=== PATIENT | male | born 1975 | race Two or more races ===

== ENCOUNTER 2020-09-23 08:00 | Outpatient (CLI) | payer OTHER ==
--- NOTE | 2020-09-23 13:51 | XRAY Report ---
PROCEDURE: Cervical Spine 2 View INDICATIONS: NECK PAIN TECHNIQUE: 3 view(s) of the cervical spine were acquired. COMPARISON: None. FINDINGS: Bones: No fractures or dislocations to the C7-T1 level. Straightening of normal cervical lordosis i s seen. Mild degenerative endplate changes are noted at C5-6 and C6-7 levels. The lateral masses of C 1 appear intact on the odontoid view. No suspicious bony lesions. Soft tissues: No prevertebral soft tissue swelling. Well-corticated soft tissue calcification in pos terior lower neck at C5-6 level is seen most likely represent remote injury. IMPRESSION: Mild degenerative disc disease in lower cervical spine. No acute fracture or dislocation . Reviewed by: Bryan Allison MD on 09/23/2020 1:50 PM PST Approved by: Bryan Allison MD on 09/23/2020 1:50 PM PST Station ID: [id number]
== END 2020-09-23 23:59 | disposition home or self-care (01) ==
LOC: DI.S 08:00
PROVIDERS: ATTEND Physician Assistant
DX: S16.1XXA Strain of muscle, fascia and tendon at neck level, initial encounter (principal); M50.322 Other cervical disc degeneration at C5-C6 level

== ENCOUNTER 2021-08-30 23:00 | Outpatient (CLI) | payer SELFPAY | END 2021-08-30 23:01 | disposition critical access hospital (66) | LOC: EMS 23:00 | DX: M54.50 Low back pain, unspecified (principal); M79.605 Pain in left leg; M79.604 Pain in right leg; R11.2 Nausea with vomiting, unspecified | CPT/HCPCS: A0425; A0427 ==

== ENCOUNTER 2021-08-30 23:22 | Emergency (ER) | payer SELFPAY ==
[2021-08-31 00:59] LABS: BILIRUBIN,URINE NEGATIVE (NEGATIVE); GLUCOSE, URINE (UA) NEGATIVE (NEGATIVE); KETONES,URINE (UA) NEGATIVE (NEGATIVE); LEUKOCYTE ESTERASE, URINE NEGATIVE (NEGATIVE); NITRITE,URINE NEGATIVE (NEGATIVE); OCCULT BLOOD,URINE LARGE (NEGATIVE); PROTEIN,URINE NEGATIVE (NEGATIVE); UROBILINOGEN,URINE 2 E.U./dL (NORMAL)
--- NOTE | 2021-08-31 01:00 | ED Physician Documentation ---
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) Timing - details: Abrupt onset Pain level max: 10 Pain level now: 8 Location: Mid, Lower, Left, Other (radiates to left flank) Quality: Pain Associated symptoms: No: Fever Improves with: Nothing Worsened by: Other (no exacerbating factors) Similar symptoms before: Has not had sx before Recently seen: Clinic (evaluated earlier today in a clinic for chronic neck pain (received injections for this today); the back pain he is having at this time is new for him and unrelated to the neck pain) Review of Systems Constitutional: denies: Fever Cardiac: reports: Reviewed and negative Respiratory: reports: Reviewed and negative GI: reports: Nausea, Vomiting. denies: Abdominal Pain (left flank and back pain but not abdominal pain per se) : denies: Dysuria, Frequency Musculoskeletal: reports: Back pain PD PAST MEDICAL HISTORY - Past Medical History Past Medical History: Yes Other Past Medical History: chronic neck pain - Past Surgical History Past Surgical History: No - Present Medications Home Medications: Ambulatory Orders Medication Instructions Recorded Confirmed Acetaminophen [Acetaminophen Extra 500 mg pe PO PRN PRN 08/31/21 08/31/21 Strength] Etodolac 200 mg PO PRN PRN 08/31/21 08/31/21 Gabapentin [Neurontin] 300 mg PO DAILY 08/31/21 08/31/21 Ondansetron Odt [Zofran] 4 mg TL Q6H PRN #10 tablet 08/31/21 Oxycodone HCl/Acetaminophen 1 - 2 each PO Q6H PRN #14 tablet 08/31/21 [Percocet 5-325 mg Tablet] Tamsulosin [Flomax] 0.4 mg PO DAILY #7 cap 08/31/21 tiZANidine [Zanaflex] 4 mg PO PRN PRN 08/31/21 08/31/21 - Social History Does the pt smoke?: Yes Smoking Status: Current every day smoker PD ED PE NORMAL - Vitals Vital signs reviewed: Yes - General General: Alert and oriented X 3, Well developed/nourished, Other (obvious severe painful distress) - Cardiac Cardiac: RRR, No murmur - Respiratory Respiratory: No respiratory distress, Clear bilaterally - Abdomen Abdomen: Soft, Non tender, Non distended - Back Back: No CVA TTP, No spinal TTP - Derm Derm: Normal color, Warm and dry Results - Vitals Vitals: Oxygen O2 Source Room air - Labs Labs: Laboratory Tests 08/31/21 08/31/21 08/31/21 00:19 02:00 02:00 WBC 14.2 H RBC 4.81 Hgb 15.2 Hct 45.0 MCV 93.6 MCH 31.6 H MCHC 33.8 RDW 13.1 Plt Count 261 MPV 9.4 Neut # (Auto) 12.5 H Lymph # (Auto) 1.0 L [place] # (Auto) 0.7 Eos # (Auto) 0.0 Baso # (Auto) 0.0 Absolute Nucleated RBC 0.00 Nucleated RBC % 0.0 Sodium 139 Potassium 3.9 Chloride 101 Carbon Dioxide 26 Anion Gap 12.0 BUN 22 H Creatinine 1.0 Estimated GFR (MDRD) 80 L Glucose 118 H Calcium 8.8 Total Bilirubin 0.7 AST 19 ALT 35 Alkaline Phosphatase 59 Total Protein 7.3 Albumin 4.0 Globulin 3.3 Albumin/Globulin Ratio 1.2 Lipase 22 Urine Color YELLOW Urine Clarity SL. CLOUDY Urine pH 7.0 Ur Specific [place] 1.020 Urine Protein NEGATIVE Urine Glucose (UA) NEGATIVE Urine Ketones NEGATIVE Urine Occult Blood LARGE H Urine Nitrite NEGATIVE Urine Bilirubin NEGATIVE Urine Urobilinogen 2 H Ur Leukocyte Esterase NEGATIVE Urine RBC 11-25 H Urine WBC 0-3 Ur Squamous Epith Cells RARE Squamous Urine Bacteria Few Ur Microscopic Review INDICATED Urine Culture Comments NOT INDICATED - Rads (name of study) CT A/P Radiology: Prelim report reviewed, See rad report PD MEDICAL DECISION MAKING - ED course Complexity details: reviewed results, re-evaluated patient, considered differential, d/w patient ED course: presents with left flank and back pain, new onset (has not had this pain before). Pain started approximately 3-[address] demonstrates left distal ureteral calculus. He is given IV toradol and dilaudid with excellent symptom re lief. Results d/w patient. He is given tamsulosin in ED prior to d/c. prescriptions for oxycodone/acetaminophen, zofran, and tamsulosin electronically submitted to his pharmacy. Return precautions discussed and diagnosis, prognosis, and follow up were also discussed. I am prescribing a short course of short-acting opioid pain medication for this patient. I have reviewed the patients [place] and no concerning findings were noted. I have discussed that the opioids are for short term therapy only, and will not be refilled from the ED. Departure - Departure Disposition: 01 Home, Self Care Clinical Impression: Renal colic Condition: Good Instructions: ED Stone Renal W Colic Prescriptions: Tamsulosin [Flomax] 0.4 mg PO DAILY #7 cap Oxycodone HCl/Acetaminophen [Percocet 5-325 mg Tablet] 1 - 2 each PO Q6H PRN #14 tablet PRN Reason: pain Ondansetron Odt [Zofran] 4 mg TL Q6H PRN #10 tablet PRN Reason: Nausea / Vomiting Comments: Prescriptions for percocet (opioid pain medication), zofran (anti-nausea medication), and flomax (helps to pass the kidney stone) have been electronically submitted to [facility] pharmacy in [place]. I notice that you already have a prescription for acetaminophen. Do not take the acetaminophen within 6 hours of taking percocet, as there is acetaminophen in percocet (and too much acetaminophen can be toxic to your liver). I am prescribing a short course of narcotic pain medication for you. These are potentially dangerous and addictive medications that should be used carefully. These medications may constipate you. Take an byap-ycc-ybvkaqg stool softener (docusate) twice daily with plenty of water while taking these medications. If you go 24 hours without a bowel movement, take itak-shg-apupvar miralax, per package instructions. Do not drink or drive while taking these medications. If you received narcotic or sedating medications while in the emergency department, do not drive for 24 hours. Store this medication in a safe, secure place and out of reach of children. It is a violation of federal law to give or sell this medication to another person or to use in a manner other than prescribed. The ED will not refill narcotic prescriptions, including prescriptions lost or stolen. To dispose of unwanted medications: 1. [facility] at [address] in [place] has a medication drop box. They accept prescription medications (in pill form) Monday through Monday 9:00 a.m. to 5:00 p.m. 2. The [facility] [employer] accepts prescription medications (in pill form only) for disposal year round. Call for more information. 3. Contact the [facility] for the next [facility] sponsored prescription drug collection event. , [phone], or [phone]; Discharge Date/Time: 08/31/21 03:44
[2021-08-31] MEDS ORDERED: HYDROmorphone 1 MG/ML CARPUJECT IVP STA ×2 (01:07→01:50)
[2021-08-31 01:08] LABS: CLARITY,URINE SL. CLOUDY (CLEAR)
[2021-08-31 01:09] LABS: BACTERIA,URINE Few /HPF (None Seen); SQUAMOUS EPITHELIAL CELL,UR RARE Squamous (<= Few); WBC,URINE 0-3 /HPF (0-3)
[2021-08-31] MEDS ORDERED: ONDANSETRON 4 MG/2 ML VIAL IVP STA (01:12)
[2021-08-31] MEDS ORDERED: KETOROLAC 30 MG/ML VIAL IVP STA (01:43)
[2021-08-31] MEDS ORDERED: TAMSULOSIN 0.4 MG CAPSULE PO STA (01:43)
[2021-08-31 02:04] LABS: BASOPHILS % (AUTO) 0.3 %; EOSINOPHILS % (AUTO) 0.1 %; HGB - HEMOGLOBIN 15.2 g/dL (14.0-18.0); LYMPHOCYTES % (AUTO) 7.2 %; MEAN CORPUSCULAR HEMOGLOBIN 31.6 pg (27.0-31.0); MEAN CORPUSCULAR HGB CONC 33.8 g/dL (32.0-36.0); MEAN CORPUSCULAR VOLUME 93.6 fL (80.0-94.0); MEAN PLATELET VOLUME 9.4 fL (7.4-11.4); MONOCYTES # (AUTO) 0.7 10^3/uL (0.0-1.0); MONOCYTES % (AUTO) 4.6 %; NEUTROPHILS # (AUTO) 12.5 10^3/uL (1.5-6.6); NEUTROPHILS % (AUTO) 87.5 %; PLT - PLATELET COUNT 261 10^3/uL (130-450); RED BLOOD COUNT 4.81 10^6/uL (4.70-6.10); RED CELL DISTRIBUTION WIDTH 13.1 % (12.0-15.0); WHITE BLOOD COUNT 14.2 x10^3/uL (4.8-10.8)
[2021-08-31 02:17] LABS: ALBUMIN/GLOBULIN RATIO 1.2 (1.0-2.2); BILIRUBIN,TOTAL 0.7 mg/dL (0.2-1.0); CALCIUM 8.8 mg/dL (8.5-10.3); POTASSIUM 3.9 mmol/L (3.5-5.0); TOTAL PROTEIN 7.3 g/dL (6.7-8.2)
[2021-08-31 03:15] VITALS: BP 106/72
--- NOTE | 2021-08-31 03:20 | CT Report ---
PROCEDURE: Abdomen/Pelvis WO INDICATIONS: left flank pain TECHNIQUE: Noncontrast 5 mm thick sections acquired from the diaphragms to the symphysis. 5 mm coronal and sagi ttal reformats were then performed. For radiation dose reduction, the following was used: automated exposure control, adjustment of mA and/or kV according to patient size. COMPARISON: None. FINDINGS: Image quality: Excellent. ABDOMEN: Lung bases: Lung bases are clear. Heart size is normal. There is a small hiatal hernia. Solid organs: Liver and spleen are normal in size. Gallbladder is normal. Pancreas is normal in co ntours. No adrenal nodules. There is mild left hydronephrosis. There is a 5 mm stone at the left UVJ. No other renal calculi. Kid neys are normal in size. Peritoneum and bowel: Unenhanced bowel loops demonstrate normal wall thickness and caliber. There a re colonic diverticula in sigmoid colon. No CT findings to suggest acute diverticulitis. No free flui d or air. Nodes and vessels: No retroperitoneal or mesenteric adenopathy by size criteria. Aorta and inferior vena cava are normal in caliber. Miscellaneous: No ventral hernias. PELVIS: Genitourinary: Bladder wall thickness is normal. Prostate is mildly enlarged. Miscellaneous: No inguinal hernias or adenopathy. Bones: No suspicious bony lesions. No vertebral body compression fractures. There is severe degener ative disc disease at L4-L5 causing moderate central canal stenosis. Mild degenerative disc disease i s present at other levels. IMPRESSION: 1. There is a 5 mm obstructive stone at the left UVJ. There is mild left hydronephrosis. 2. No other renal stones are identified. 3. Diverticulosis without diverticulitis. 4. Small hiatal hernia. 5. Severe degenerative disc disease at L4-L5 causing moderate central canal stenosis. Reviewed by: Dillon Novak MD on 08/31/2021 3:19 AM PST Approved by: Dillon Novak MD on 08/31/2021 3:19 AM PST Station ID: [id number]
[2021-08-31] MEDS ORDERED: ONDANSETRON ODT 4 MG Prepack 2 TL STA (03:21)
[2021-08-31] MEDS ORDERED: oxyCODONE/ACET 5/325 Prepack 4 PO STA (03:21)
== END 2021-08-31 03:44 | disposition home or self-care (01) ==
LOC: EDUNIT# → ED 23:22
DX: N13.2 Hydronephrosis with renal and ureteral calculous obstruction (principal); F17.200 Nicotine dependence, unspecified, uncomplicated
CPT/HCPCS: 36415; 74176; 80053; 81001; 83690; 85025; 96374; 96375; 96376; 99284; A9270; J1170; 81003; 87086

== ENCOUNTER 2021-09-04 00:29 | Emergency (ER) | payer SELFPAY ==
--- NOTE | 2021-09-04 00:44 | ED Physician Documentation ---
PD HPI ABD PAIN - Stated complaint Stated Complaint: L SIDE ABD PX - Chief complaint Chief Complaint: Abd Pain - History obtained from History obtained from: Patient - History of Present Illness Timing - onset: How many days ago (5) Timing - details: Abrupt onset, Intermittant, Waxing and waning Pain level now: 8 Quality: Pain Location: LLQ Radiation: Left flank Improved by: Meds (oxycodone) Worsened by: Other (no exacerbating factors) Associated symptoms: Nausea, Vomiting. No: Fever Similar symptoms before: Diagnosis (renal colic) Recently seen: Emergency Dept - Additional information Additional information: T+R from this ED 5 days ago for same symptoms (left flank pain), diagnosed with renal colic by CT which showed 5mm left UVJ stone. He has not pursued outpatient follow up. he says the prescribed oxycodone was controlling the pain but that he is now out of this medication and the pain has returned. Review of Systems Constitutional: denies: Fever GI: reports: Abdominal Pain, Nausea. denies: Vomiting : denies: Dysuria, Frequency PD PAST MEDICAL HISTORY - Past Medical History Past Medical History: Yes : Kidney stones - Past Surgical History Past Surgical History: No - Present Medications Home Medications: Ambulatory Orders Medication Instructions Recorded Confirmed Acetaminophen [Acetaminophen Extra 500 mg pe PO PRN PRN 08/31/21 08/31/21 Strength] Etodolac 200 mg PO PRN PRN 08/31/21 08/31/21 Gabapentin [Neurontin] 300 mg PO DAILY 08/31/21 08/31/21 Ondansetron Odt [Zofran] 4 mg TL Q6H PRN #10 tablet 08/31/21 Oxycodone HCl/Acetaminophen 1 - 2 each PO Q6H PRN #14 tablet 08/31/21 [Percocet 5-325 mg Tablet] Tamsulosin [Flomax] 0.4 mg PO DAILY #7 cap 08/31/21 tiZANidine [Zanaflex] 4 mg PO PRN PRN 08/31/21 08/31/21 Ondansetron Odt [Zofran] 4 mg TL Q6H PRN #14 tablet 09/04/21 Oxycodone HCl/Acetaminophen 1 - 2 each PO Q6H PRN #14 tablet 09/04/21 [Percocet 5-325 mg Tablet] oxyCODONE [Roxicodone] 5 - 10 mg PO Q6H PRN #14 tablet 09/04/21 - Allergies Allergies/Adverse Reactions: Allergies Allergy/AdvReac Type Severity Reaction Status Date / Time No Known Drug Allergies Allergy Verified 09/04/21 00:34 - Social History Does the pt smoke?: Yes Smoking Status: Current every day smoker PD ED PE NORMAL - Vitals Vital signs reviewed: Yes - General General: Alert and oriented X 3, Well developed/nourished, Other (appears to be in mild-moderate painful distress (appears to wax and wane during H+P)) - Cardiac Cardiac: RRR, No murmur - Respiratory Respiratory: No respiratory distress, Clear bilaterally - Abdomen Abdomen: Soft, Non tender - Back Back: No CVA TTP Results - Vitals Vitals: Vital Signs - 24 hr 09/04/21 09/04/21 09/04/21 00:34 00:40 01:05 Temperature 37.4 C 37.4 C Heart Rate 87 87 81 Respiratory 18 18 18 Rate Blood Pressure 130/82 H 130/82 H 109/70 O2 Saturation 99 99 97 09/04/21 02:00 Temperature Heart Rate 81 Respiratory 17 Rate Blood Pressure 156/61 H O2 Saturation 96 Oxygen O2 Source Room air - Labs Labs: Laboratory Tests 09/04/21 00:42 Urine Color YELLOW Urine Clarity CLEAR Urine pH 6.0 Ur Specific [place] 1.025 Urine Protein NEGATIVE Urine Glucose (UA) NEGATIVE Urine Ketones NEGATIVE Urine Occult Blood LARGE H Urine Nitrite NEGATIVE Urine Bilirubin NEGATIVE Urine Urobilinogen 0.2 (NORMAL) Ur Leukocyte Esterase NEGATIVE Urine RBC 11-25 H Urine WBC 0-3 Ur Squamous Epith Cells NONE SEEN Urine Bacteria None Seen Ur Microscopic Review INDICATED Urine Culture Comments NOT INDICATED PD MEDICAL DECISION MAKING - ED course Complexity details: reviewed old records, reviewed results, re-evaluated patient, considered differential, d/w patient ED course: Diagnosed with renal colic in this ED [address] demonstrating 5mm left distal ureteral calculus, returns due to ongoing pain that was controlled by oxycodone, but ran out of this medication. He has hematuria on tonight's UA; other emergent testing not indicated at this time. He is given 1mg IM dilaudid and on reevaluation he is resting comfortably and reports good pain relief. Rx for oxycodone sent to his pharmacy. I instructed him to pursue outpatient follow up; he will likely need to see a general practitioner to obtain urology referral. I am prescribing a short course of short-acting opioid pain medication for this patient. I have reviewed the patients [place] and no concerning findings were noted. I have discussed that the opioids are for short term therapy only, and will not be refilled from the ED. Departure - Departure Disposition: 01 Home, Self Care Clinical Impression: Renal colic Condition: Good Instructions: ED Stone Renal W Colic Prescriptions: Oxycodone HCl/Acetaminophen [Percocet 5-325 mg Tablet] 1 - 2 each PO Q6H PRN #14 tablet PRN Reason: pain oxyCODONE [Roxicodone] 5 - 10 mg PO Q6H PRN #14 tablet PRN Reason: Pain Ondansetron Odt [Zofran] 4 mg TL Q6H PRN #14 tablet PRN Reason: Nausea / Vomiting Comments: Prescriptions for oxycodone (pain medication) and ondansetron (anti-nausea medication) have been submitted to [facility] pharmacy in [place]. Please seek follow up with a urologist; to do this, you will likely need a referral from an outpatient general practitioner (such as family practice at a clinic). I am prescribing a short course of narcotic pain medication for you. These are potentially dangerous and addictive medications that should be used carefully. These medications may constipate you. Take an xqig-fjh-jkmfixz stool softener (docusate) twice daily with plenty of water while taking these medications. If you go 24 hours without a bowel movement, take lhxq-xrn-rzxgryt miralax, per package instructions. Do not drink or drive while taking these medications. If you received narcotic or sedating medications while in the emergency department, do not drive for 24 hours. Store this medication in a safe, secure place and out of reach of children. It is a violation of federal law to give or sell this medication to another person or to use in a manner other than prescribed. The ED will not refill narcotic prescriptions, including prescriptions lost or stolen. To dispose of unwanted medications: 1. [facility] [address] in [place] has a medication drop box. They accept prescription medications (in pill form) Monday through Monday 9:00 a.m. to 5:00 p.m. 2. The [facility] accepts prescription medications (in pill form only) for disposal year round. Call for more information. 3. Contact the [facility] for the next [facility] sponsored prescription drug collection event. , [phone], or [phone]; Discharge Date/Time: 09/04/21 02:44
[2021-09-04] MEDS ORDERED: HYDROmorphone 1 MG/ML CARPUJECT IM STA (00:55)
[2021-09-04] MEDS ORDERED: ONDANSETRON ODT 4 MG TABLET TL STA (00:55)
[2021-09-04 01:09] LABS: BILIRUBIN,URINE NEGATIVE (NEGATIVE); GLUCOSE, URINE (UA) NEGATIVE (NEGATIVE); KETONES,URINE (UA) NEGATIVE (NEGATIVE); LEUKOCYTE ESTERASE, URINE NEGATIVE (NEGATIVE); NITRITE,URINE NEGATIVE (NEGATIVE); OCCULT BLOOD,URINE LARGE (NEGATIVE); PROTEIN,URINE NEGATIVE (NEGATIVE); UROBILINOGEN,URINE 0.2 (NORMAL) E.U./dL (NORMAL)
[2021-09-04 01:13] LABS: CLARITY,URINE CLEAR (CLEAR)
[2021-09-04 01:17] LABS: BACTERIA,URINE None Seen /HPF (None Seen); SQUAMOUS EPITHELIAL CELL,UR NONE SEEN (<= Few); WBC,URINE 0-3 /HPF (0-3)
[2021-09-04 02:19] VITALS: BP 156/61
== END 2021-09-04 02:44 | disposition home or self-care (01) ==
LOC: ED 00:29
DX: N13.2 Hydronephrosis with renal and ureteral calculous obstruction (principal); R31.9 Hematuria, unspecified; F17.200 Nicotine dependence, unspecified, uncomplicated
CPT/HCPCS: 81001; 96372; 99283; J1170; Q0162; 81003; 87086

== ENCOUNTER 2022-06-15 12:52 | Emergency (ER) | payer SELFPAY ==
[2022-06-15 13:09] VITALS: BP 115/75
--- NOTE | 2022-06-15 13:40 | ED Physician Documentation ---
PD DWAINE HEENT - Stated complaint Stated Complaint: EAR PX - Chief complaint Chief Complaint: Heent - History obtained from History obtained from: Patient - History of Present Illness Timing - onset: How many days ago (5) Timing - duration: Days (5) Timing - details: Abrupt onset, Still present Location: Right ear, Left ear Improves: Medication Associated symptoms: Other (hearing loss). No: Fever, Congestion, Rhinorrhea, Trismus, Unable to swallow, Swollen nodes, Facial swelling, Headache, Cough Similar symptoms before: Has not had sx before Recently seen: Emergency Dept - Additional information Additional information: 47-year-old Dejon Colby was seen in the emergency department here 5 days ago for bilateral otitis externa. He was placed on ofloxacin drops and he has had some improvement in his symptoms but continues have itching and fullness. Review of Systems Constitutional: denies: Fever Eyes: denies: Decreased vision Ears: reports: Loss of hearing, Ear pain Nose: denies: Rhinorrhea / runny nose, Congestion Throat: denies: Sore throat Cardiac: denies: Chest pain / pressure Respiratory: denies: Dyspnea, Cough GI: denies: Vomiting PD PAST MEDICAL HISTORY - Past Medical History Cardiovascular: None Respiratory: None Neuro: None Endocrine/Autoimmune: None GI: None : Kidney stones HEENT: None Psych: None Musculoskeletal: None Derm: None - Past Surgical History Past Surgical History: No - Present Medications Home Medications: Ambulatory Orders Medication Instructions Recorded Confirmed Acetaminophen [Acetaminophen Extra 500 mg pe PO PRN PRN 08/31/21 08/31/21 Strength] Etodolac 200 mg PO PRN PRN 08/31/21 08/31/21 Gabapentin [Neurontin] 300 mg PO DAILY 08/31/21 08/31/21 Ondansetron Odt [Zofran] 4 mg TL Q6H PRN #10 tablet 08/31/21 Oxycodone HCl/Acetaminophen 1 - 2 each PO Q6H PRN #14 tablet 08/31/21 [Percocet 5-325 mg Tablet] Tamsulosin [Flomax] 0.4 mg PO DAILY #7 cap 08/31/21 tiZANidine [Zanaflex] 4 mg PO PRN PRN 08/31/21 08/31/21 Ondansetron Odt [Zofran] 4 mg TL Q6H PRN #14 tablet 09/04/21 Oxycodone HCl/Acetaminophen 1 - 2 each PO Q6H PRN #14 tablet 09/04/21 [Percocet 5-325 mg Tablet] oxyCODONE [Roxicodone] 5 - 10 mg PO Q6H PRN #14 tablet 09/04/21 Ofloxacin [Ofloxacin Otic drops] 10 ml EACHEAR DAILY 5 Days #50 ml 06/10/22 Neomycin/Polymyx/Hc Otic Drops 4 drops EACHEAR TID #10 ml 06/15/22 [Cortisporin Ear Susp] - Allergies Allergies/Adverse Reactions: Allergies Allergy/AdvReac Type Severity Reaction Status Date / Time No Known Drug Allergies Allergy Verified 06/15/22 13:09 - Social History Does the pt smoke?: Yes Smoking Status: Current every day smoker Does the pt drink ETOH?: No Does the pt have substance abuse?: No PD ED PE NORMAL - Vitals Vital signs reviewed: Yes (normal ) - General General: Alert and oriented X 3, No acute distress, Well developed/nourished - HEENT HEENT: Atraumatic, PERRL, EOMI, Other (both canals are edematous and erythematous with pain to the left only. 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, No motor deficit, No sensory deficit, Normal speech Eye Opening: Spontaneous Motor: Obeys Commands Verbal: Oriented GCS Score: 15 - Psych Psych: Normal mood, Normal affect Results - Vitals Vitals: Vital Signs - 24 hr 06/15/22 13:06 Temperature 36.5 C Heart Rate 73 Respiratory 16 Rate Blood Pressure 115/75 O2 Saturation 97 Oxygen O2 Source Room air PD MEDICAL DECISION MAKING - ED course Complexity details: considered differential, d/w patient ED course: 47-year-old male has bilateral otitis externa appears to have some improvement from his prior examination but continues to complain of itching and symptoms. We will switch him to Cortisporin otic and I will have him follow-up with ENT if he does not have resolution. Departure - Departure Disposition: 01 Home, Self Care Clinical Impression: Bilateral otitis externa Qualifiers: Otitis externa type: unspecified type Chronicity: acute Qualified Code(s): H60.503 - Unspecified acute noninfective otitis externa, bilateral Condition: Stable Instructions: ED Otitis Externa Follow-Up: [facility] [place] [Provider Group] Prescriptions: Neomycin/Polymyx/Hc Otic Drops [Cortisporin Ear Susp] 4 drops EACHEAR TID #10 ml Comments: Dejon, today it looks like you have a persistence of your external ear canal infection and it is causing you some symptoms of itching. We are changing your drops to a drop that will have some cortisone in it and this should help. My recommendation is that if you do not get relief of your symptoms over the weekend to follow-up with the ear nose and throat doctor in [place].The medication has been E scribed to [facility] in [place]
== END 2022-06-15 14:00 | disposition home or self-care (01) ==
LOC: ED 12:52
DX: H60.503 Unspecified acute noninfective otitis externa, bilateral (principal); F17.200 Nicotine dependence, unspecified, uncomplicated
CPT/HCPCS: 99281; 99282